=== PATIENT | female | born 1990 | race Caucasian/White ===

== ENCOUNTER 2017-11-13 12:17 | Emergency (ER) | payer MEDICAID, OTHER, SELFPAY | END 2017-11-13 13:21 | disposition left against medical advice (07) | LOC: M ED 12:17 | DX: Z53.29 Procedure and treatment not carried out because of patient's decision for other reasons (principal) ==

== ENCOUNTER 2017-11-14 09:38 | Emergency (ER) | payer OTHER, MEDICAID ==
[2017-11-14] MEDS: NS 1,000 ML IV ×2 (10:55)
[2017-11-14] MEDS: KETOROLAC 30 MG/ML VIAL (J1885) IV ×2 (10:55)
[2017-11-14 10:59] LABS: BASO # 0.1 10^3/uL (0.0-0.2); BASO % 0.9 % (0.0-1.0); EOS # 0.1 10^3/uL (0.0-0.50); EOS % 1.4 % (0.0-3.0); HEMATOCRIT 38.1 % (36.0-47.0); HEMOGLOBIN 13.3 g/dl (12.0-16.0); IMMATURE GRANULOCYTE % 0.2 % (0-0); LYMPH # 2.9 10^3/uL (1.5-6.5); LYMPH % 32.8 % (24.0-44.0); MEAN CORPUSCULAR HEMOGLOBIN 31.6 pg (27.0-33.0); MEAN CORPUSCULAR HGB CONC 34.9 g/dl (32.0-36.5); MEAN CORPUSCULAR VOLUME 90.5 fl (80.0-96.0); MONO # 0.6 10^3/uL (0.0-0.8); MONO % 6.3 % (0.0-5.0); NEUTROPHILS # 5.1 10^3/uL (1.8-7.7); NEUTROPHILS % 58.4 % (36.0-66.0); PLATELET COUNT, AUTOMATED 316 10^3/uL (150-450); RED BLOOD COUNT 4.21 10^6/uL (4.00-5.40); RED CELL DISTRIBUTION WIDTH 11.7 % (11.5-14.5); WHITE BLOOD COUNT 8.8 10^3/uL (4.0-10.0)
[2017-11-14 11:21] LABS: ANION GAP 8 MEQ/L (8-16); BLOOD UREA NITROGEN 13 MG/DL (7-18); CARBON DIOXIDE LEVEL 28 MEQ/L (21-32); CHLORIDE LEVEL 104 MEQ/L (98-107); GLOMERULAR FILTRATION RATE > 60.0 (>60); GLUCOSE, FASTING 89 MG/DL (70-100); POTASSIUM SERUM 3.2 MEQ/L (3.5-5.1); SODIUM LEVEL 140 MEQ/L (136-145)
[2017-11-14] MEDS: MORPHINE 2 MG/ML 1ML SYRINGE (J2270) IV (12:16)
[2017-11-14] MEDS: MORPHINE 2 MG/ML 1ML SYRINGE IV (12:16)
[2017-11-14] MEDS: POTASSIUM CHLORIDE 10 MEQ SR TABLET PO ×2 (12:17)
[2017-11-14 12:21] LABS: APPEARANCE, URINE HAZY (CLEAR); BACTERIA, URINE AUTO 1+ (NEGATIVE); BILIRUBIN, URINE AUTO NEGATIVE (NEGATIVE); BLOOD, URINE BLOOD 1+ (NEGATIVE); COLOR, URINE YELLOW (YELLOW); GLUCOSE, URINE (UA) AUTO NEGATIVE (NEGATIVE); KETONE, URINE AUTO NEGATIVE (NEGATIVE); LEUKOCYTE ESTERASE, URINE AUTO NEGATIVE (NEGATIVE); MUCUS, URINE SMALL (NEGATIVE); NITRITE, URINE AUTO NEGATIVE (NEGATIVE); PROTEIN, URINE AUTO NEGATIVE (NEGATIVE); RBC, URINE AUTO 5 /HPF (0-3); SPECIFIC GRAVITY URINE AUTO 1.013 (1.002-1.035); SQUAMOUS EPITHELIAL CELL UR AU 3 /HPF (0-6); UROBILINOGEN, URINE AUTO 0.2 mg/dL (0.0-2.0); WBC, URINE AUTO 1 /HPF (0-3)
== END 2017-11-14 13:23 | disposition home or self-care (01) ==
LOC: M ED 09:38
DX: M54.5 Low back pain (principal); E87.6 Hypokalemia; F90.9 Attention-deficit hyperactivity disorder, unspecified type; M79.7 Fibromyalgia; Z79.899 Other long term (current) drug therapy; Z88.0 Allergy status to penicillin; F17.210 Nicotine dependence, cigarettes, uncomplicated
CPT/HCPCS: J1885

== ENCOUNTER 2018-02-14 10:36 | Emergency (ER) | payer OTHER ==
[2018-02-14] MEDS: IBUPROFEN 800 MG TAB PO (11:40)
== END 2018-02-14 12:21 | disposition home or self-care (01) ==
LOC: M ED 10:36
DX: S20.91XA Abrasion of unspecified parts of thorax, initial encounter (principal); S00.83XA Contusion of other part of head, initial encounter; S10.93XA Contusion of unspecified part of neck, initial encounter; S80.11XA Contusion of right lower leg, initial encounter; S80.12XA Contusion of left lower leg, initial encounter; Y04.8XXA Assault by other bodily force, initial encounter; Y92.099 Unspecified place in other non-institutional residence as the place of occurrence of the external cause; Y93.89 Activity, other specified; Y99.9 Unspecified external cause status; F17.200 Nicotine dependence, unspecified, uncomplicated; Z88.0 Allergy status to penicillin
CPT/HCPCS: 99283

== ENCOUNTER → 2019-01-15 | Outpatient (CLI) | payer OTHER ==
[~2019-01-15] MED LIST: ADDE20CA3 PO; CLEO300C2 PO; CYCL10TA PO; DOXY150C PO; IBUP-1022 PO; IBUP80TA PO; [UNRECOGNIZED DRUG - CODE] PO
[2019-01-15 18:25] LABS: BASO # 0.1 10^3/uL (0.0-0.2); BASO % 0.3 % (0.0-1.0); EOS # 0.1 10^3/uL (0.0-0.50); EOS % 0.5 % (0.0-3.0); HEMATOCRIT 39.3 % (36.0-47.0); HEMOGLOBIN 13.6 g/dl (12.0-15.5); LYMPH # 2.1 10^3/uL (1.5-6.5); LYMPH % 13.7 % (24.0-44.0); MEAN CORPUSCULAR HEMOGLOBIN 31.9 pg (27.0-33.0); MEAN CORPUSCULAR HGB CONC 34.6 g/dl (32.0-36.5); MEAN CORPUSCULAR VOLUME 92.3 fl (80.0-96.0); MONO # 0.6 10^3/uL (0.0-0.8); MONO % 3.9 % (0.0-5.0); NEUTROPHILS # 12.3 10^3/uL (1.8-7.7); NEUTROPHILS % 80.4 % (36.0-66.0); PLATELET COUNT, AUTOMATED 356 10^3/uL (150-450); RED BLOOD COUNT 4.26 10^6/uL (4.00-5.40); WHITE BLOOD COUNT 15.3 10^3/uL (4.0-10.0)
[2019-01-15 18:34] LABS: AMORPHOUS SEDIMENT SMALL (NEGATIVE); APPEARANCE, URINE TURBID (CLEAR); BACTERIA, URINE AUTO 3+ (NEGATIVE); BILIRUBIN, URINE AUTO NEGATIVE (NEGATIVE); BLOOD, URINE BLOOD NEGATIVE (NEGATIVE); COLOR, URINE AMBER (YELLOW); GLUCOSE, URINE (UA) AUTO NEGATIVE (NEGATIVE); KETONE, URINE AUTO NEGATIVE (NEGATIVE); LEUKOCYTE ESTERASE, URINE AUTO 1+ (NEGATIVE); MUCUS, URINE SMALL (NEGATIVE); NITRITE, URINE AUTO POSITIVE (NEGATIVE); PROTEIN, URINE AUTO NEGATIVE (NEGATIVE); RBC, URINE AUTO 7 /HPF (0-3); SPECIFIC GRAVITY URINE AUTO 1.018 (1.002-1.035); SQUAMOUS EPITHELIAL CELL UR AU 1 /HPF (0-6); UROBILINOGEN, URINE AUTO 0.2 mg/dL (0.0-2.0); WBC, URINE AUTO 47 /HPF (0-3)
[2019-01-15 19:27] LABS: HEPATITIS B SURFACE ANTIGEN NEGATIVE (NEGATIVE); HIV 1&2 SCREEN CENTAUR NEGATIVE (NEGATIVE); RUBELLA IgG QUALITATIVE IMMUNE (IMMUNE)
[2019-01-15 21:09] LABS: CHLAMYDIA DNA AMPLIFICATION NEGATIVE (NEGATIVE); GC DNA AMPLIFICATION NEGATIVE (NEGATIVE)
== END ==
LOC: M LAB 16:36
PROVIDERS: ATTEND Obstetrics & Gynecology
DX: Z34.83 Encounter for supervision of other normal pregnancy, third trimester (principal); Z3A.00 Weeks of gestation of pregnancy not specified

== ENCOUNTER 2019-01-28 05:05 | Inpatient (IN) | payer OTHER ==
[~2019-01-28] VITALS: Ht 162.6 cm; Wt 105.2 kg
[2019-01-28] VITALS (35 sets, daily range): BP systolic 105–151; BP diastolic 55–90
[2019-01-28] MEDS ORDERED: NITROFURANTOIN (MACROBID) 100 MG CAP PO SCH (06:25)
[2019-01-28] MEDS ORDERED: LACTATED RINGER'S 1000 ML IV STA (08:02)
[2019-01-28] MEDS ORDERED: OXYTOCIN DRIP 30 UNITS in APPROPRIATE DILUENT 1 EA IV SCH ×2 (08:15→22:14)
[2019-01-28 08:44] LABS: HEMATOCRIT 39.1 % (36.0-47.0); HEMOGLOBIN 13.6 g/dl (12.0-15.5); MEAN CORPUSCULAR HGB CONC 34.8 g/dl (32.0-36.5); PLATELET COUNT, AUTOMATED 337 10^3/uL (150-450); RED BLOOD COUNT 4.25 10^6/uL (4.00-5.40)
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
[2019-01-28 09:09] LABS: AMPHETAMINES URINE REFLEX NEGATIVE (NEGATIVE); BARBITURATES URINE REFLEX NEGATIVE (NEGATIVE); BENZODIAZEPINES URINE REFLEX NEGATIVE (NEGATIVE); CANNABINOIDS URINE REFLEX NEGATIVE (NEGATIVE); COCAINE METABOLITE URINE REFLE NEGATIVE (NEGATIVE); METHADONE URINE REFLEX NEGATIVE (NEGATIVE); OPIATES URINE REFLEX NEGATIVE (NEGATIVE); PHENCYCLIDINE URINE REFLEX NEGATIVE (NEGATIVE)
[2019-01-28] MEDS: LR 1,000 ML IV SCH ×2 (09:58→14:12)
[2019-01-28] MEDS: FENTANYL/ROPIVACAINE/NACL BAG 100 ML EPIDURAL SCH ×2 (10:07→17:52)
[2019-01-28] MEDS ORDERED: LACTATED RINGER'S 1000 ML IV PRN (10:45)
[2019-01-28] MEDS ORDERED: REFRIGERATOR IV KEYS XX PRN (10:45)
[2019-01-28] MEDS ORDERED: diphenhydrAMINE INJ 50MG/ML VIAL (J1200) IV PRN ×2 (10:45→21:30)
[2019-01-28] MEDS ORDERED: ePHEDrine SULFATE 25 MG/5 ML(5MG/ML) SYRINGE IV PRN (10:45)
[2019-01-28] MEDS ORDERED: EPIDURAL/PCA KEYS XX PRN (10:45)
[2019-01-28] MEDS ORDERED: NALOXONE INJ 0.4 MG/1 ML VIAL (J2310) IV PRN ×3 (10:45→21:30)
[2019-01-28] MEDS ORDERED: EPIDURAL COMMENT XX SCH (10:45)
[2019-01-28] MEDS ORDERED: ONDANSETRON 4MG/2ML VIAL (J2405) IV PRN ×4 (10:45→23:30)
[2019-01-28] MEDS ORDERED: ceFAZolin SOD 1 GM in D5W MINI-BAG PLUS 50 ML IV SCH (17:00)
[2019-01-28] MEDS ORDERED: SODIUM BICARBONATE 8.4% INJ 50 ML SYRINGE As Ordered ONE (19:49)
[2019-01-28] MEDS ORDERED: LIDOCAINE 2% W/EPIN INJ 20ML **PRES FREE As Ordered ONE (19:50)
[2019-01-28] MEDS ORDERED: ACETAMINOPHEN 1000MG 100ML IV BTL (OFIRMEV) (J0131 PER 10MG) As Ordered ONE (19:50)
[2019-01-28] MEDS ORDERED: KETOROLAC 60 MG/2 ML VIAL (J1885) As Ordered ONE (19:50)
[2019-01-28] MEDS ORDERED: ONDANSETRON 4MG/2ML VIAL (J2405) As Ordered ONE (19:50)
[2019-01-28] MEDS ORDERED: OXYTOCIN INJ 10 UNITS/ML VIAL (J2590) As Ordered ONE (19:50)
[2019-01-28] MEDS ORDERED: MORPHINE PRES-FREE INJ 10 MG/10 ML VIAL (J2274) As Ordered ONE (19:51)
[2019-01-28] MEDS ORDERED: fentaNYL 100 MCG/2 ML INJECTION (J3010) As Ordered ONE ×2 (19:51→23:39)
[2019-01-28] MEDS ORDERED: BICITRA 30ML SOLN UDC As Ordered ONE (20:59)
[2019-01-28] MEDS ORDERED: ceFAZolin 2 GM/D5W 50 ML IV BAG (J0690 PER 500MG) As Ordered ONE (20:59)
[2019-01-28] MEDS ORDERED: NALBUPHINE HCL 10 MG/ML AMP (J2300) IV PRN ×2 (21:30→23:30)
[2019-01-28] MEDS ORDERED: METOCLOPRAMIDE INJ 10MG/2ML VIAL (J2765) IV PRN (21:30)
[2019-01-28] MEDS ORDERED: LR 1,000 ML IV SCH (22:14)
[2019-01-28] MEDS ORDERED: MEASLES,MUMPS,RUBELLA VACCINE INJ (MMR-II) (90707) SC SCH (22:15)
[2019-01-28] MEDS ORDERED: DOCUSATE SODIUM 100 MG CAP PO PRN (22:15)
[2019-01-28] MEDS ORDERED: RHOGAM 300 MCG (1500 IU) INJ (J2790) IM SCH (22:15)
[2019-01-28] MEDS ORDERED: PERCOCET 5MG/325MG TAB As Ordered ONE (23:21)
[2019-01-28] MEDS: PERCOCET 5MG/325MG TAB PO PRN (23:25)
[2019-01-28] MEDS ORDERED: HYDROMORPHONE HCL 0.5 MG/ 0.5 ML SYRINGE (J1170 PER 1) IV PRN (23:30)
[2019-01-28] MEDS ORDERED: oxyCODONE 5MG TAB PO PRN (23:30)
[2019-01-28] MEDS ORDERED: KETOROLAC 30 MG/ML VIAL (J1885) IV PRN (23:30)
[2019-01-28] MEDS: fentaNYL 100 MCG/2 ML INJECTION (J3010) IV PRN (23:44)
[2019-01-29] VITALS (8 sets, daily range): BP systolic 109–138; BP diastolic 55–78
[2019-01-29] MEDS: fentaNYL 100 MCG/2 ML INJECTION (J3010) IV PRN (00:07)
[2019-01-29] MEDS ORDERED: OXYC1TAB23 PO (00:07)
[2019-01-29] MEDS ORDERED: IBUP-1022 PO (00:08)
[2019-01-29] MEDS ORDERED: KETOROLAC 30 MG/ML VIAL (J1885) IV SCH (02:00)
[2019-01-29] MEDS ORDERED: BICITRA 30ML SOLN UDC PO SCH (06:00)
[2019-01-29] MEDS: KETOROLAC 30 MG/ML VIAL (J1885) IV SCH ×3 (06:14→18:24)
[2019-01-29 06:53] LABS: MEAN CORPUSCULAR HGB CONC 34.2 g/dl (32.0-36.5); MEAN CORPUSCULAR VOLUME 93.5 fl (80.0-96.0); PLATELET COUNT, AUTOMATED 307 10^3/uL (150-450); RED BLOOD COUNT 3.53 10^6/uL (4.00-5.40); WHITE BLOOD COUNT 15.6 10^3/uL (4.0-10.0)
[2019-01-29 07:02] LABS: HEMOGLOBIN 11.3 g/dl (12.0-15.5)
[2019-01-29] MEDS: PRENATAL VITAMINS CHEWABLE TABLET PO SCH (08:04)
[2019-01-29] MEDS: PERCOCET 5MG/325MG TAB PO PRN ×3 (08:05→20:41)
[2019-01-29] MEDS ORDERED: ADACEL/BOOSTRIX VACCINE (DIPHTH/PERTUSS/ACELL/TETANUS)0.5ML SYR (90715) IM ONE (09:00)
[2019-01-29] MEDS: IBUPROFEN 800 MG TAB PO SCH (23:53)
[2019-01-30 02:00] VITALS: BP 118/60
[2019-01-30] MEDS: PERCOCET 5MG/325MG TAB PO PRN ×2 (05:12→14:14)
[2019-01-30 06:00] VITALS: BP 131/78
--- NOTE | 2019-01-30 07:35 | DSES ---
DATE OF ADMISSION: 01/28/2019 DATE OF DISCHARGE: DISCHARGE DIAGNOSIS: Repeat section at term, failed vaginal after (). DISCHARGE DIAGNOSIS: Stable for discharge postoperative day #2. SURGEON: Dr. Fabien Simmons HISTORY: Jaime is a 28-year-old, 3, para 1-1-1-3 now, who underwent a repeat section due to failed . The surgery was uncomplicated. Her postoperative course has been uncomplicated. She has been out of bed for self care, ancelmo care and care. Bottle feeding well. Her pain has been well controlled with by mouth Percocet and ibuprofen. She is tolerating regular fluids and a regular diet. She has assumed care and her own personal care without difficulty. She does request discharge to home today. She is voiding without difficulty and passing flatus. OBJECTIVE: Vital Signs: Temperature 97.6, pulse 92, respirations 18, BP is 131/78. She is alert and oriented times three. Her breasts are soft and nontender. Abdomen: Fundus firm at one fingerbreadth below umbilicus. Incision dressing is intact. There is no drainage noted. Her perineum with lochia rubra scant. Bilateral lower extremities with +2 pitting edema. Preoperative CBC on 01/28/2019 with hemoglobin 13.6, hematocrit 39.1 and platelets 337. Postoperative CBC on 01/29/2019 with hemoglobin 11.3, hematocrit 33 and platelets 307. PLAN: Discharge the patient to home today. Prescriptions have been E-prescribed by Dr. Fabien Simmons to her pharmacy for Percocet 5/325 and ibuprofen. She is to follow up at [facility] for a 2-week incision check and an 8-week visit. I did review discharge instructions that include breast care, incision care, ancelmo care, activity and lifting restrictions, danger signs to report to the office, as well as, access to care. The patient has had all of her questions answered and requests discharge home.
--- NOTE | 2019-01-30 07:46 | RO ---
DATE OF PROCEDURE: 01/28/2019 PREOPERATIVE DIAGNOSIS: 38 5/7 weeks gestation. Arrest of dilatation. POSTOPERATIVE DIAGNOSIS: 38 5/7 weeks gestation. Arrest of dilatation. PROCEDURE: Repeat low transverse section. SURGEON: Fabien Simmons MD TWISTING FRAME CHANGER: Inge Valenzuela MD ANESTHESIA: Epidural. ESTIMATED BLOOD LOSS: 500 mL. URINE OUTPUT: 150 mL. FINDINGS: 6 pound 11 ounce 3030 gram male infant, score 9 and 9. OPERATIVE SUMMARY: The patient was taken to the operating room where epidural anesthesia was adequate. A De Los Santos catheter was already placed. A Pfannenstiel skin incision was made with the scalpel after prepping the abdomen appropriately. The fascia was incised. Peritoneal cavity was entered. A bladder flap was created. A curvilinear incision was made in the lower uterine segment until clear fluid was noted. This was extended manually. The infant was delivered from the vertex position without difficulty. The cord was doubly clamped and cut. The was handed off to the awaiting nurses. The placenta was expressed. The uterus was exteriorized and cleared of clots and debris. The uterine incision was closed with #0 Vicryl in a running locked fashion. A second imbricating layer of #0 Vicryl was placed. The uterus was placed back in the abdominal cavity. The peritoneum was closed with #2-0 Vicryl in a running fashion. The fascia was closed with #0 Vicryl in a running fashion. The deep layer was irrigated closed with #2-0 chromic. The skin was closed with #4-0 Monocryl subcuticular sutures. Sponge, instrument and needle counts were correct. Inge Valenzuela MD assisted in all aspects of procedure from beginning to end. She helped creation and incision in all layers including the uterus, assisted with expulsion of the fetus and assisted in closure of all layers.
[2019-01-30] MEDS: IBUPROFEN 800 MG TAB PO SCH ×2 (08:18→16:54)
[2019-01-30] MEDS: PRENATAL VITAMINS CHEWABLE TABLET PO SCH (08:18)
[2019-01-30] MEDS ORDERED: ADACEL/BOOSTRIX VACCINE (DIPHTH/PERTUSS/ACELL/TETANUS)0.5ML SYR (90715) IM ONE (09:00)
[2019-01-30 10:00] VITALS: BP 126/61
[2019-01-30 14:00] VITALS: BP 138/88
[2019-01-30] MEDS ORDERED: PRENTAB9 PO (14:23)
[2019-01-30 18:00] VITALS: BP 144/82
== END 2019-01-30 20:25 | disposition home or self-care (01) | DRG 540 ==
LOC: M LDO 05:05 → M LDI 07:58 → M OBS 01-29 00:50
PROVIDERS: ADMIT Specialist; ATTEND Specialist
PROC: 10D00Z1 Extraction of Products of Conception, Low, Open Approach (ICD-10-PCS; principal; 2019-01-28 21:17)
DX: O62.0 Primary inadequate contractions (principal); F17.210 Nicotine dependence, cigarettes, uncomplicated; O34.211 Maternal care for low transverse scar from previous cesarean delivery; Z37.0 Single live birth; Z3A.38 38 weeks gestation of pregnancy; O09.31 Supervision of pregnancy with insufficient antenatal care, first trimester; O09.32 Supervision of pregnancy with insufficient antenatal care, second trimester; O09.33 Supervision of pregnancy with insufficient antenatal care, third trimester; Z88.0 Allergy status to penicillin; O99.334 Smoking (tobacco) complicating childbirth; Z91.410 Personal history of adult physical and sexual abuse

== ENCOUNTER 2019-08-27 09:21 | Emergency (ER) | payer OTHER ==
[~2019-08-27] VITALS: Ht 162.6 cm; Wt 80.9 kg
[~2019-08-27 09:21] MED LIST changes: +OXYC1TAB23 PO; +PRENTAB9 PO
[2019-08-27] MEDS ORDERED: ADDE1TAB14 PO (09:26)
[2019-08-27 10:17] VITALS: BP 141/92
--- NOTE | 2019-08-27 10:28 | REP ---
Two-view chest: 08/27/2019. Indication: Cough. Comparison: 12/28/2007. Findings: The lungs are clear. There is no pleural effusion or pneumothorax. The cardiomediastinal silhouette is unremarkable. There is straightening of the thoracic kyphosis. Impression: No acute cardiopulmonary process. Electronically Signed by Maxim Medrano DO 08/27/2019 10:20 A
== END 2019-08-27 11:32 | disposition home or self-care (01) ==
LOC: M ED 09:21
DX: J00 Acute nasopharyngitis [common cold] (principal); J06.9 Acute upper respiratory infection, unspecified; B34.9 Viral infection, unspecified; G43.909 Migraine, unspecified, not intractable, without status migrainosus; F90.9 Attention-deficit hyperactivity disorder, unspecified type; F32.9 Major depressive disorder, single episode, unspecified; F17.200 Nicotine dependence, unspecified, uncomplicated; Z79.899 Other long term (current) drug therapy; Z88.0 Allergy status to penicillin

== ENCOUNTER → 2019-12-26 | Outpatient (CLI) | payer OTHER ==
[~2019-12-26] MED LIST changes: +ADDE1TAB14 PO
[2019-12-26 10:31] LABS: BARBITURATES URINE REFLEX NEGATIVE (NEGATIVE); BENZODIAZEPINES URINE REFLEX NEGATIVE (NEGATIVE); COCAINE METABOLITE URINE REFLE NEGATIVE (NEGATIVE); METHADONE URINE REFLEX NEGATIVE (NEGATIVE); OPIATES URINE REFLEX NEGATIVE (NEGATIVE); PHENCYCLIDINE URINE REFLEX NEGATIVE (NEGATIVE)
[2019-12-26 11:04] LABS: AMPHETAMINES URINE REFLEX PENDING CONFIRMATION (NEGATIVE)
[2019-12-26 11:05] LABS: CANNABINOIDS URINE REFLEX PENDING CONFIRMATION (NEGATIVE)
== END ==
LOC: M LAB 09:43
PROVIDERS: ATTEND Family Medicine
DX: Z79.899 Other long term (current) drug therapy (principal)
CPT/HCPCS: 36415; 80307; G0480

== ENCOUNTER → 2020-10-26 | Outpatient (CLI) | payer OTHER ==
[~2020-10-26] MED LIST changes: +CYCL-707 PO; -CYCL10TA PO
== END ==
LOC: M LAB 11:21
PROVIDERS: ATTEND Family Medicine
DX: F90.9 Attention-deficit hyperactivity disorder, unspecified type (principal)

== ENCOUNTER → 2022-02-21 | Outpatient (CLI) | payer OTHER ==
[~2022-02-21] MED LIST changes: -DOXY150C PO; +DOXY150C3 PO
[2022-02-21 16:47] LABS: HEMATOCRIT 42.4 % (36.0-47.0); HEMOGLOBIN 14.6 g/dl (12.0-15.5); MEAN CORPUSCULAR HEMOGLOBIN 31.5 pg (27.0-33.0); MEAN CORPUSCULAR HGB CONC 34.4 g/dl (32.0-36.5); MEAN CORPUSCULAR VOLUME 91.4 fl (80.0-96.0); PLATELET COUNT, AUTOMATED 281 10^3/uL (150-450); RED BLOOD COUNT 4.64 10^6/uL (4.00-5.40); WHITE BLOOD COUNT 6.6 10^3/uL (4.0-10.0)
[2022-02-21 17:16] LABS: ALBUMIN 4.1 GM/DL (3.2-5.2); ALT/SGPT 22 U/L (12-78); BILIRUBIN,TOTAL 0.4 MG/DL (0.2-1.0); BLOOD UREA NITROGEN 10 MG/DL (7-18); CALCIUM LEVEL 9.2 MG/DL (8.5-10.1); CARBON DIOXIDE LEVEL 29 MEQ/L (21-32); CHLORIDE LEVEL 105 MEQ/L (98-107); CHOLESTEROL LEVEL 188 MG/DL (<200); CHOLESTEROL RISK RATIO 2.892 (<5); CREATININE FOR GFR 0.63 MG/DL (0.55-1.30); GLOMERULAR FILTRATION RATE > 60.0 (>60); GLUCOSE, FASTING 97 MG/DL (70-100); HDL CHOLESTEROL 65 MG/DL (>40); LDL CHOLESTEROL 104 MG/DL (<100); NON-HDL-C 123 MG/DL; SODIUM LEVEL 138 MEQ/L (136-145); TOTAL 25(OH) VITAMIN D 9.3 NG/ML (30.0-100.0); TOTAL PROTEIN 7.1 GM/DL (6.4-8.2); TRIGLYCERIDES LEVEL 95 MG/DL (<150)
== END ==
LOC: M LAB 16:20
PROVIDERS: ATTEND Family Medicine
DX: D64.9 Anemia, unspecified (principal); R53.83 Other fatigue; E03.9 Hypothyroidism, unspecified

== ENCOUNTER → 2022-04-20 | Outpatient (CLI) | payer OTHER ==
[2022-04-20 10:45] LABS: HEMATOCRIT 39.3 % (36.0-47.0); HEMOGLOBIN 13.5 g/dl (12.0-15.5); MEAN CORPUSCULAR HEMOGLOBIN 31.5 pg (27.0-33.0); MEAN CORPUSCULAR HGB CONC 34.4 g/dl (32.0-36.5); MEAN CORPUSCULAR VOLUME 91.6 fl (80.0-96.0); PLATELET COUNT, AUTOMATED 271 10^3/uL (150-450); RED BLOOD COUNT 4.29 10^6/uL (4.00-5.40); WHITE BLOOD COUNT 8.6 10^3/uL (4.0-10.0)
[2022-04-20 11:03] LABS: HEMOGLOBIN A1c 5.1 %
[2022-04-20 11:43] LABS: ALBUMIN 4.3 GM/DL (3.2-5.2); ALT/SGPT 21 U/L (12-78); BILIRUBIN,TOTAL 0.5 MG/DL (0.2-1.0); BLOOD UREA NITROGEN 14 MG/DL (7-18); CALCIUM LEVEL 9.5 MG/DL (8.5-10.1); CARBON DIOXIDE LEVEL 28 MEQ/L (21-32); CHLORIDE LEVEL 106 MEQ/L (98-107); CHOLESTEROL LEVEL 170 MG/DL (<200); CHOLESTEROL RISK RATIO 2.361 (<5); CREATININE FOR GFR 0.72 MG/DL (0.55-1.30); GLOMERULAR FILTRATION RATE > 60.0 (>60); GLUCOSE, FASTING 93 MG/DL (70-100); HDL CHOLESTEROL 72 MG/DL (>40); IRON (FE) 111 UG/DL (50-170); LDL CHOLESTEROL 88 MG/DL (<100); NON-HDL-C 98 MG/DL; PERCENT SATURATION 29.5 % (13.2-45.0); SODIUM LEVEL 140 MEQ/L (136-145); TOTAL IRON BINDING CAPACITY 376 UG/DL (250-450); TOTAL PROTEIN 7.2 GM/DL (6.4-8.2); TRIGLYCERIDES LEVEL 52 MG/DL (<150)
[2022-04-20 12:45] LABS: TOTAL 25(OH) VITAMIN D 18.3 NG/ML (30.0-100.0)
== END ==
LOC: M LAB 10:11
PROVIDERS: ATTEND Family Medicine
DX: D64.9 Anemia, unspecified (principal); R53.83 Other fatigue; E03.9 Hypothyroidism, unspecified

== ENCOUNTER → 2023-04-18 | Outpatient (CLI) | payer MEDICAID | LOC: M OUTALCOH 07:26 | PROVIDERS: ATTEND Psychiatry & Neurology Psychiatry | DX: Z13.39 Encounter for screening examination for other mental health and behavioral disorders (principal) ==

== ENCOUNTER 2023-04-27 13:53 | Outpatient (RCR) | payer MEDICAID | END 2023-05-07 | LOC: M OUTALCOH 13:53 | PROVIDERS: ATTEND Psychiatry & Neurology Psychiatry | DX: F12.10 Cannabis abuse, uncomplicated (principal); F17.200 Nicotine dependence, unspecified, uncomplicated ==

== ENCOUNTER → 2023-08-29 | Outpatient (CLI) | payer MEDICAID, OTHER | LOC: M RAD 11:06 | PROVIDERS: ATTEND Family Medicine | DX: D64.9 Anemia, unspecified (principal); J44.9 Chronic obstructive pulmonary disease, unspecified; E03.9 Hypothyroidism, unspecified ==